=== PATIENT | female | born 1935 | race Two or more races ===

== ENCOUNTER 2019-10-23 12:46 | Emergency (ER) | payer OTHER ==
[~2019-10-23] VITALS: Ht 157.5 cm; Wt 111.6 kg
[2019-10-23] MEDS ORDERED: NORVASC5 MG PO (14:06)
[2019-10-23] MEDS ORDERED: SYNTHROID125 MCG PO (14:06)
[2019-10-23] MEDS ORDERED: GLUMETZA1000 MG PO (14:07)
[2019-10-23] MEDS ORDERED: CALAN SR120 MG PO (14:07)
[2019-10-23] MEDS ORDERED: ISORDIL10 MG PO (14:07)
== END 2019-10-23 19:50 | disposition home or self-care (01) ==
LOC: ER 12:46
DX: B02.29 Other postherpetic nervous system involvement (principal)